=== PATIENT | male | born 1995 | race Caucasian/White ===

== ENCOUNTER 2018-07-28 11:54 | Emergency (ER) | payer OTHER ==
--- NOTE | 2018-07-28 12:20 | ED ---
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 Pt states today is the first day he has went to talk to them and that he is unsure why they suggested he come here, although he would like to see a counselor on a regular basis. He reports transient thoughts of SI and ones of killing his mother, although he denies a plan, and states it upset him to think about these thoughts so he tries not to. He has a history of anorexia and states he feels social isolated which has made his poor thoughts worse. His counselor called report in and states the patient can hear trees talking to him. He also talked to the patients mother who reported she has noticed an issue and has tried to put it off. - History Of Current Complaint Chief Complaint: EDMentalHealth Time Seen by Provider: 07/28/18 12:04 Hx Obtained From: Patient Onset/Duration: Still Present Timing: Constant Severity Initially: Moderate Severity Currently: Moderate Character: Depressed Associated Signs And Symptoms: Positive: Hallucinating Related History: Positive For: Prior Psychiatric Issues Has Suicidal: Reports: Thoughts. Denies: With A Plan, Demonstrates Gesture, Has Prior Attempt(s) Has Homicidal: Reports: Thoughts. Denies: With A Plan, Demonstrates Gesture - Allergies/Home Medications Allergies/Adverse Reactions: Allergies Allergy/AdvReac Type Severity Reaction Status Date / Time Unable to Assess Allergy Verified 07/28/18 12:03 Home Medications: Home Medications NK [No Home Medications Reported] 07/28/18 [History Confirmed 07/28/18] PMH/Surg Hx/FS Hx/Imm Hx Endocrine/Hematology History: Reports: Other Endocrine/Hematological Disorders - psoriasis, Denies: Hx Thyroid Disease, Hx Unexplained Bleeding Respiratory History: Reports: Hx Asthma Infectious Disease History: No Infectious Disease History: Denies: Traveled Outside the [place] in Last 30 Days - Family History Known Family History: Negative: Renal Disease, Seizure Disorder - Social History Occupation: Student Lives: Dormitory/Roommates Alcohol Use: None Hx Substance Use: No Substance Use Type: Reports: None Hx Tobacco Use: No Smoking Status (MU): Never Smoked Tobacco Review of Systems Negative: Fever Positive: Other - Auditory hallucinations Positive: Other - SI and HI All Other Systems Reviewed And Are Negative: Yes Physical Exam - Summary Physical Exam Summary: Appearance: Well-appearing, Well-nourished, lying in bed comfortable Skin: Warm, dry, no obvious rash Eyes: sclera anicteric, no conjunctival pallor ENT: mucous membranes moist Neck: deferred Respiratory: No signs of respiratory distress Cardiovascular: Appears well perfused, pulses are nml Abdomen: deferred Musculoskeletal: Moving all 4 extremities without obvious discomfort Neurological: Awake and alert, mentation is normal, speech is fluent and appropriate Psychiatric: affect is normal, does not appear anxious or depressed Triage Information Reviewed: Yes Vital Signs On Initial Exam: Initial Vitals Temp Pulse Resp BP Pulse Ox 99.2 F 104 15 149/75 98 07/28/18 11:59 07/28/18 11:59 07/28/18 11:59 07/28/18 11:59 07/28/18 11:59 Vital Signs Reviewed: Yes Diagnostics - Vital Signs Vital Signs Temp Pulse Resp BP Pulse Ox 07/28/18 11:59 99.2 F 104 15 149/75 98 - Laboratory Result Diagrams: 07/28/18 12:33 07/28/18 12:33 Lab Statement: Any lab studies that have been ordered have been reviewed, and results considered in the medical decision making process. Course/Dx - Course Assessment/Plan: This patient is a 23 year old M presenting to [facility] after being sent from the mental health counselor at his college. Pt states today is the first day he has went to talk to them and that he is unsure why they suggested he come here, although he would like to see a counselor on a regular basis. He reports transient thoughts of SI and ones of killing his mother, although he denies a plan, and states it upset him to think about these thoughts so he tries not to. He has a history of anorexia and states he feels social isolated which has made his poor thoughts worse. His counselor called report in and states the patient can hear trees talking to him. He also talked to the patients mother who reported she has noticed an issue and has tried to put it off. This patient will be signed out to Dr. Underwood awaiting [facility] - Differential Dx/Clinical Impression Provider Diagnosis: Mood disorder Discharge - Sign-Out/Discharge Documenting (check all that apply): Sign-Out Patient Signing out patient TO: Felicia Underwood - Discharge Plan Condition: Stable Disposition: HOME Referrals: [facility] [place] [facility]IAN REFERRAL [Outside] - 3 Days Additional Instructions: RETURN TO THE ED WITH ANY NEW OR WORSENING SYMPTOMS. - Billing Disposition and Condition Condition: STABLE Disposition: Home - Attestation Statements Document Initiated by Neela: Yes Documenting Scribe: Deon Cannon Provider For Whom Neela is Documenting (Include Credential): Bull Walden MD Scribe Attestation: Deon Thompson, scribed for Bull Walden MD on 07/30/18 at 1529. Scribe Documentation Reviewed: Yes Provider Attestation: The documentation as recorded by the Deon bailey accurately reflects the service I personally performed and the decisions made by me, Bull Walden MD
[2018-07-28 12:49] LABS: ABS Basophils 0.1 10^3/ul (0-0.2); ABS Eosinophils 0.1 10^3/ul (0-0.6); ABS Lymphocytes 1.5 10^3/ul (1.0-4.8); ABS Monocytes 0.5 10^3/ul (0-0.8); ABS Neutrophils 2.7 10^3/ul (1.5-7.7); ABS Nucleated RBC 0 10^3/ul; Eosinophil % 1.9 % (0-6); Hematocrit 46 % (42-52); Lymphocyte % 31.1 % (25-47); Mean Corpuscular HGB Conc 35 g/dl (31-36); Mean Corpuscular Hemoglobin 31 pg (27-31); Mean Corpuscular Volume 89 fL (80-94); Mean Platelet Volume 7.1 um3 (7.4-10.4); Nucleated Red Blood Cells % 0.2; Platelet Count 274 10^3/ul (150-450); Red Blood Count 5.13 10^6/ul (4.00-5.40); Red Cell Distribution Width 13 % (10.5-15); White Blood Count 4.8 10^3/ul (3.5-10.8)
[2018-07-28 12:51] LABS: Urine Appearance Clear; Urine Blood Negative (Negative); Urine Color Straw; Urine Ketones Negative (Negative); Urine Protein Negative (Negative); Urine Red Blood Cell Trace(0-2/hpf) (Absent); Urine Specific Gravity 1.004 (1.010-1.030); Urine Urobilinogen Negative (Negative); Urine White Blood Cell Trace(0-5/hpf) (Absent)
[2018-07-28 13:05] LABS: EGFR Non-African American 125.6 (>60)
--- NOTE | 2018-07-28 22:44 | ED ---
Course/Dx - Diagnoses Provider Diagnoses: Unspecified psychosis - Provider Notifications Discussed Care Of Patient With: Gloria Love Time Discussed With Above Provider: 06:00 Instructed by Provider To: Other - Per MIKE Vasquez, accepts admission on involuntary status with dx of unspecified psychosis. Discharge - Sign-Out/Discharge Documenting (check all that apply): Patient Departure - admit, Receiving Sign- Out Receiving patient FROM: Bull Walden - Discharge Plan Condition: Stable Disposition: [facility] [place] Referrals: No Primary Care Phys,[facility] [Primary Care Provider] - - Attestation Statements Document Initiated by Scribe: Yes Documenting Scribe: Andrae Skelton Provider For Whom Scribe is Documenting (Include Credential): Dr. Felicia Underwood MD Scribe Attestation: Andrae Thompson, scribed for Dr. Felicia Underwood MD on 07/29/18 at 0559.
--- NOTE | 2018-07-29 14:24 | ED ---
Progress - Progress Note Progress Note: Receiving sign out from Dr. Underwood. Patient's mother says that the patient does not need to be admitted and she feels comfortable with him receiving care at home. Dr. Hirsch is comfortable with the patient being discharged home. Final dx is mood disorder. Course/Dx - Diagnoses Provider Diagnoses: Mood disorder - Provider Notifications Discussed Care Of Patient With: Collin Hirsch Time Discussed With Above Provider: 14:20 Instructed by Provider To: Other - Dr. Hirsch is comfortable with the patient being discharged home. Discharge - Sign-Out/Discharge Documenting (check all that apply): Patient Departure - Discharge - Discharge Plan Condition: Stable Disposition: HOME Referrals: [facility] [place] [facility]IAN REFERRAL [Outside] - 3 Days Additional Instructions: RETURN TO THE ED WITH ANY NEW OR WORSENING SYMPTOMS. - Attestation Statements Document Initiated by Scribe: Yes Documenting Scribe: Alessandra Merida Provider For Whom Scribe is Documenting (Include Credential): Casa Larsen MD Scribe Attestation: Alessandra Thompson, scribed for Casa Larsen MD on 07/29/18 at 1421.
[2018-07-29 14:44] VITALS: BP 112/68
== END 2018-07-29 14:43 | disposition home or self-care (01) ==
LOC: ED 11:54
DX: F39 Unspecified mood [affective] disorder (principal); F29 Unspecified psychosis not due to a substance or known physiological condition
CPT/HCPCS: 36415; 80053; 80307; 80320; 81003; 81015; 84443; 85025; 87086; 99285; G0480